=== PATIENT | male | born 1975 | race Caucasian/White ===

== ENCOUNTER 2019-08-22 06:45 | Emergency (ER) | payer SELFPAY ==
[~2019-08-22] VITALS: Ht 175.3 cm; Wt 90.7 kg
[~2019-08-22 06:45] MED LIST: KETOROLAC TROME10 MG PO; SUMATRIPTAN SUC50 M1 PO
[2019-08-22 06:53] VITALS: Ht 175.3 cm; Wt 90.7 kg
[2019-08-22 08:35] VITALS: BP 129/82
== END 2019-08-22 08:35 | disposition home or self-care (01) ==
LOC: ED 06:45
DX: S16.1XXA Strain of muscle, fascia and tendon at neck level, initial encounter (principal); S86.811A Strain of other muscle(s) and tendon(s) at lower leg level, right leg, initial encounter; S20.211A Contusion of right front wall of thorax, initial encounter; Z88.0 Allergy status to penicillin; V49.9XXA Car occupant (driver) (passenger) injured in unspecified traffic accident, initial encounter; Y93.I9 Activity, other involving external motion; Y92.413 State road as the place of occurrence of the external cause; Y99.8 Other external cause status
CPT/HCPCS: Q0092